=== PATIENT | female | born 2000 | race Caucasian/White ===

== ENCOUNTER → 2024-03-19 16:56 | Outpatient (CLI) | payer OTHER, SELFPAY ==
[2024-03-19 17:35] LABS: Add Manual Diff / Slide Review NO; Basophils Absolute Auto 100 /uL (0-100); Basophils Percent Auto 0.6 % (0-2); Eosinophils Absolute Auto 0 /uL (0-450); Eosinophils Percent Auto 0.3 % (2-4); Hemoglobin 15.9 g/dL (12.0-16.0); Lymphocytes Absolute Auto 1900 /uL (1100-4500); Lymphocytes Percent Auto 18.4 % (25-40); Mean Corpuscular HGB Conc 34.7 % (30-36); Mean Corpuscular Hemoglobin 30.3 PG (26-34); Mean Corpuscular Volume 87.5 fL (80-100); Monocytes Absolute Auto 500 /uL (0-900); Monocytes Percent Auto 4.9 % (3-14); Neutrophils Absolute Auto 7800 /uL (1500-7000); Neutrophils Percent Auto 75.8 % (50-75); Platelet Count 294 X10^3/uL (150-400); Red Blood Cell Count 5.26 X10^6/uL (4.0-5.2); Red Cell Distribution Width 13.3 % (11.6-14.8); White Blood Cell Count 10.3 X10^3/uL (4.5-11.0)
[2024-03-19 18:33] LABS: HEMOLYSIS < 15 (0-50); Iron 104 ug/dL (37-170)
[2024-03-19 18:44] LABS: Percent Iron Saturation 33 % (15-50); Total Iron Binding Capacity 313 ug/dL (265-497); Transferrin 239 mg/dL (206-381)
[2024-03-19 18:49] LABS: Vitamin D 25 Hydroxy (D3) 52.4 ng/mL (30.0-100.0)
[2024-03-19 19:06] LABS: TSH w/ Reflex to FT4 0.66 uIU/mL (0.47-4.68)
[2024-03-19 19:23] LABS: Ferritin 20 ng/mL (6-137)
[2024-03-19 19:38] LABS: Vitamin B12 Reflex MMA if <400 265 pg/mL (239-931)
[2024-03-22 00:09] LABS: Methylmalonic Acid,Serum 167 nmol/L (0-378)
== END ==
PROVIDERS: Family Provider Pediatrics; PCP Family Medicine; Referring Provider Family Medicine; Visit Provider Family Medicine
DX: R53.83 Other fatigue (principal); R41.89 Other symptoms and signs involving cognitive functions and awareness
CPT/HCPCS: 36415; 82306; 82607; 82728; 83540; 83550; 83921; 84443; 85025